=== PATIENT | male | born 1945 | race Caucasian/White ===

== ENCOUNTER → 2018-07-26 | Outpatient (CLI) | payer MEDICARE, OTHER ==
[~2018-07-26] MED LIST: AMLO5 PO; MECL25 PO; PROM25 PO; URSO300 PO
== END | disposition home or self-care (01) ==
LOC: PLD 08:26 → LAB SHORT 08:26
DX: D04.39 Carcinoma in situ of skin of other parts of face (principal); L57.0 Actinic keratosis
CPT/HCPCS: 88305

== ENCOUNTER → 2019-08-14 | Outpatient (CLI) | payer MEDICARE, OTHER | END | disposition home or self-care (01) | LOC: PLD 11:34 → LAB SHORT 11:34 | DX: L57.0 Actinic keratosis (principal) | CPT/HCPCS: 88305 ==

== ENCOUNTER → 2020-07-31 | Outpatient (CLI) | payer MEDICARE, OTHER ==
[~2020-07-31] MED LIST changes: +CIPR500 PO; +Flagyl500 MG PO
[2020-07-31 09:09] LABS: BASOPHILS ABSOLUTE AUTO 0.05 K/mm3 (0.00-0.23); BASOPHILS PERCENT AUTO 1 % (0-2); EOSINOPHILS ABSOLUTE AUTO 0.15 K/mm3 (0.00-0.68); EOSINOPHILS PERCENT AUTO 2 % (0-6); Hematocrit 43.9 % (37.0-53.0); Hemoglobin 14.9 g/dL (13.5-17.5); IMMATURE GRAN ABSOLUTE AUTO 0.04 K/mm3 (0.00-0.10); IMMATURE GRAN PERCENT AUTO 1 % (0-1); LYMPHOCYTES ABSOLUTE AUTO 2.26 K/mm3 (0.84-5.20); LYMPHOCYTES PERCENT AUTO 27 % (21-46); MONOCYTES ABSOLUTE AUTO 0.75 K/mm3 (0.16-1.47); MONOCYTES PERCENT AUTO 9 % (4-13); Mean Corpuscular HGB 30.2 pg (26.0-34.0); Mean Corpuscular HGB Conc 33.9 g/dL (31.5-36.5); Mean Corpuscular Volume 89 fL (80-100); Mean Platelet Volume 10.7 fL (9.1-12.4); NEUTROPHILS ABSOLUTE AUTO 5.02 K/mm3 (1.96-9.15); NEUTROPHILS PERCENT AUTO 61 % (41-73); Platelet Count 188 K/mm3 (150-400); RDW Coefficient Variation 13.2 % (11.7-14.2); Red Blood Cell Count 4.94 M/mm3 (4.30-5.90); White Blood Cell Count 8.27 K/mm3 (4.00-11.30)
[2020-07-31 09:18] LABS: Alanine Aminotransfer (ALT/SGP 26 U/L (12-78); Albumin, Blood 3.5 g/dL (3.4-5.0); Albumin/Globulin Ratio 0.8 (0.8-1.8); Alk Phos 125 U/L (40-126); Anion Gap 8 mmol/L (6-16); Aspartate Aminotrans (AST/SGOT 56 U/L (12-37); Bilirubin, Total 0.7 mg/dL (0.1-1.0); Blood Urea Nitrogen 17 mg/dL (8-24); Bun/Creatinine Ratio 16.5 (12.0-20.0); CO2, Blood 29 mmol/L (21-32); Calcium, Blood 9.3 mg/dL (8.5-10.1); Chloride, Blood 100 mmol/L (98-108); Creatinine, Blood 1.03 mg/dL (0.60-1.20); Globulin, Blood 4.2 g/dL (2.2-4.0); Glomerular Filtration Rate >60 (60-); Glucose, Blood 94 mg/dL (70-99); Potassium, Blood 3.9 mmol/L (3.5-5.5); Sodium, Blood 137 mmol/L (136-145); Total Protein, Blood 7.7 g/dL (6.4-8.2)
== END | disposition home or self-care (01) ==
LOC: LAB SHORT 09:04 → LAB EV 09:04
PROVIDERS: General Practice
DX: Z09 Encounter for follow-up examination after completed treatment for conditions other than malignant neoplasm (principal); Z86.718 Personal history of other venous thrombosis and embolism
CPT/HCPCS: 80053; 85025; 85379

== ENCOUNTER 2022-03-24 08:39 | Emergency (ER) | payer OTHER, MEDICARE ==
[~2022-03-24] VITALS: Ht 162.6 cm; Wt 98.9 kg
[2022-03-24] MEDS ORDERED: LOSARTAN POTAS100 M1 PO (09:52)
[2022-03-24] MEDS ORDERED: ELIQUIS5 M3 PO (09:52)
[2022-03-24] MEDS ORDERED: NEURONTIN300 MG PO (09:53)
[2022-03-24] MEDS ORDERED: Roxicodone5 MG PO (10:52)
== END 2022-03-24 11:00 | disposition home or self-care (01) ==
LOC: ER 08:39
DX: S43.402A Unspecified sprain of left shoulder joint, initial encounter (principal); S80.212A Abrasion, left knee, initial encounter; W01.0XXA Fall on same level from slipping, tripping and stumbling without subsequent striking against object, initial encounter; I10 Essential (primary) hypertension; Z79.899 Other long term (current) drug therapy
CPT/HCPCS: 73030; 99283-25

== ENCOUNTER 2023-02-10 12:35 | Observation (INO) | payer MEDICARE, OTHER ==
[~2023-02-10] VITALS: Ht 165.1 cm; Wt 101.2 kg
[~2023-02-10 12:35] MED LIST changes: -ALLEGRA ALLERG180 MG PO; -FLONASE ALLERG9.9 M2; -SILD25T PO
[2023-02-10] MEDS ORDERED: ALLEGRA ALLERG180 MG PO (15:02)
[2023-02-10] MEDS ORDERED: FLONASE ALLERG9.9 M2 (15:03)
[2023-02-10] MEDS ORDERED: SILD25T PO (15:05)
[2023-02-10] MEDS ORDERED: URSO300 PO (15:06)
[2023-02-10 15:35] VITALS: BP 165/75
--- NOTE | 2023-02-10 17:26 | NUR ---
SHIFT SUMMARY: ASSUMED CARE OF PT UPON HIS ARRIVAL FROM [facility] AT 1249. A&O X 4, PLEASANT. PLACED ON TELEMETRY WHICH SHOWS SINUS JANIA WITH RATE IN 40'S; NOTIFIED BY DIRECTOR BUSINESS INTEGRATION Rojas JUAREZ THAT UNDERLYING RHYTHM LOOKS TO BE SINUS ARRYTHMIA WITH RATE OF 65. ON ROOM AIR, BROUGHT OWN CPAP FROM HOME. 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 EDUCATED PT THAT, D/T DIZZINESS AND BRADYCARDIA, HE NEEDS TO CALL STAFF BEFORE GETTING OOB; TENDS TO OVERESTIMATE HIS ABILITY AND DOES NOT CALL. PLACED SCD'S, WILL HOLD ELITESSIS TONIGHT IN CASE OF PROCEDURE TOMORROW. LOGISTICS OPERATIONS MANAGER DR. GILLETTE HAS SEEN PATIENT.
[2023-02-10 19:24] VITALS: BP 117/57
[2023-02-11 04:02] VITALS: BP 108/60
[2023-02-11 05:08] LABS: BASOPHILS ABSOLUTE AUTO 0.04 K/mm3 (0.00-0.23); BASOPHILS PERCENT AUTO 1 % (0-2); EOSINOPHILS ABSOLUTE AUTO 0.11 K/mm3 (0.00-0.68); EOSINOPHILS PERCENT AUTO 2 % (0-6); Hematocrit 41.9 % (37.0-53.0); Hemoglobin 13.9 g/dL (13.5-17.5); IMMATURE GRAN ABSOLUTE AUTO 0.01 K/mm3 (0.00-0.10); IMMATURE GRAN PERCENT AUTO 0 % (0-1); LYMPHOCYTES ABSOLUTE AUTO 2.13 K/mm3 (0.84-5.20); LYMPHOCYTES PERCENT AUTO 38 % (21-46); MONOCYTES ABSOLUTE AUTO 0.57 K/mm3 (0.16-1.47); MONOCYTES PERCENT AUTO 10 % (4-13); Mean Corpuscular HGB 30.3 pg (26.0-34.0); Mean Corpuscular HGB Conc 33.2 g/dL (31.5-36.5); Mean Corpuscular Volume 91 fL (80-100); Mean Platelet Volume 11.6 fL (9.1-12.4); NEUTROPHILS ABSOLUTE AUTO 2.68 K/mm3 (1.96-9.15); NEUTROPHILS PERCENT AUTO 48 % (41-73); Platelet Count 146 K/mm3 (150-400); RDW Coefficient Variation 13.9 % (11.7-14.2); RDW Standard Deviation 46.5 fL (35.1-46.3); Red Blood Cell Count 4.59 M/mm3 (4.30-5.90); White Blood Cell Count 5.54 K/mm3 (4.00-11.30)
[2023-02-11 05:36] LABS: Albumin/Globulin Ratio 0.8 (0.8-1.8); Bilirubin, Total 0.4 mg/dL (0.1-1.0); Bun/Creatinine Ratio 18.3 (12.0-20.0); Calcium, Blood 8.5 mg/dL (8.5-10.1); Creatinine, Blood 0.93 mg/dL (0.60-1.20); Globulin, Blood 3.6 g/dL (2.2-4.0); Potassium, Blood 4.1 mmol/L (3.5-5.5); Total Protein, Blood 6.6 g/dL (6.4-8.2)
--- NOTE | 2023-02-11 06:02 | NUR ---
SHIFT SUMMARY PT LAYING IN BED DURING BEDSIDE ROUNDS, PT DENIED ANY NEEDS AT THAT TIME-IGNITION SOURCE ASSESSED, PT DENIED SMOKING AND DENIED ANY IGNITION SOURCES PT INFORMED THIS RN THAT HE TOOK HIS OWN GABAPENTIN MEDICATION- EDUCATED PT OF NOT TAKING OWN MEDICATIONS WHILE ADMITTED- PT STATED UNDERSTANDING- RT IN WITH PT AND APPLIED BATTERY TESTER FIELD AND HOME CPAP- APPLIED EGG CRATE TO BED - PT C/O OF BED BEING UNCOMFORTABLE-PT SLEPT T/O NIGHT
[2023-02-11 07:50] VITALS: BP 140/73
== END 2023-02-11 12:59 | disposition home or self-care (01) ==
LOC: MEDS 12:35
PROVIDERS: ADMIT Internal Medicine
DX: R00.1 Bradycardia, unspecified (principal); R55 Syncope and collapse; R42 Dizziness and giddiness; K74.5 Biliary cirrhosis, unspecified; I10 Essential (primary) hypertension; K21.9 Gastro-esophageal reflux disease without esophagitis; E78.5 Hyperlipidemia, unspecified; G62.9 Polyneuropathy, unspecified; G47.33 Obstructive sleep apnea (adult) (pediatric); Z86.718 Personal history of other venous thrombosis and embolism
CPT/HCPCS: 36415; 80053; 85025; 93005; 93010; 93246; 93306; 96372; A9270; G0378; G0379; J1650

== ENCOUNTER → 2023-02-10 | Outpatient (CLI) | payer MEDICARE, OTHER ==
[~2023-02-10] MED LIST changes: +ALLEGRA ALLERG180 MG PO; +ELIQUIS5 M3 PO; +FLONASE ALLERG9.9 M2; +LOSARTAN-HCTZ1 EACH PO; +NEURONTIN300 MG PO; +Roxicodone5 MG PO; +SILD25T PO
[2023-02-10 09:58] LABS: BASOPHILS ABSOLUTE AUTO 0.06 K/mm3 (0.00-0.23); BASOPHILS PERCENT AUTO 1 % (0-2); EOSINOPHILS ABSOLUTE AUTO 0.08 K/mm3 (0.00-0.68); EOSINOPHILS PERCENT AUTO 1 % (0-6); Hematocrit 43.5 % (37.0-53.0); Hemoglobin 14.7 g/dL (13.5-17.5); IMMATURE GRAN ABSOLUTE AUTO 0.02 K/mm3 (0.00-0.10); IMMATURE GRAN PERCENT AUTO 0 % (0-1); LYMPHOCYTES ABSOLUTE AUTO 1.87 K/mm3 (0.84-5.20); LYMPHOCYTES PERCENT AUTO 34 % (21-46); MONOCYTES PERCENT AUTO 9 % (4-13); Mean Corpuscular HGB 30.8 pg (26.0-34.0); Mean Corpuscular HGB Conc 33.8 g/dL (31.5-36.5); Mean Corpuscular Volume 91 fL (80-100); Mean Platelet Volume 11.4 fL (9.1-12.4); NEUTROPHILS PERCENT AUTO 54 % (41-73); Platelet Count 152 K/mm3 (150-400); RDW Coefficient Variation 13.7 % (11.7-14.2); RDW Standard Deviation 46.4 fL (35.1-46.3); Red Blood Cell Count 4.78 M/mm3 (4.30-5.90); White Blood Cell Count 5.53 K/mm3 (4.00-11.30)
[2023-02-10 10:07] LABS: Albumin, Blood 3.4 g/dL (3.4-5.0); Albumin/Globulin Ratio 0.8 (0.8-1.8); Bilirubin, Total 0.8 mg/dL (0.1-1.0); Bun/Creatinine Ratio 13.6 (12.0-20.0); Calcium, Blood 9.6 mg/dL (8.5-10.1); Creatinine, Blood 1.03 mg/dL (0.60-1.20); Globulin, Blood 4.3 g/dL (2.2-4.0); Potassium, Blood 3.9 mmol/L (3.5-5.5); Total Protein, Blood 7.7 g/dL (6.4-8.2)
== END ==
LOC: LAB 09:51 → LAB SHORT 09:51
PROVIDERS: Family Medicine
DX: R11.0 Nausea (principal)
CPT/HCPCS: 80053; 83880; 84484; 85025

== ENCOUNTER → 2023-05-25 | Outpatient (CLI) | payer MEDICARE, OTHER ==
[~2023-05-25] MED LIST changes: +ALLEGRA ALLERG180 MG PO; +FLONASE ALLERG9.9 M2; +SILD25T PO
[2023-05-25 16:07] LABS: BASOPHILS ABSOLUTE AUTO 0.06 K/mm3 (0.00-0.23); BASOPHILS PERCENT AUTO 1 % (0-2); EOSINOPHILS PERCENT AUTO 1 % (0-6); Hematocrit 43.6 % (37.0-53.0); Hemoglobin 14.6 g/dL (13.5-17.5); IMMATURE GRAN ABSOLUTE AUTO 0.03 K/mm3 (0.00-0.10); IMMATURE GRAN PERCENT AUTO 0 % (0-1); LYMPHOCYTES ABSOLUTE AUTO 2.27 K/mm3 (0.84-5.20); LYMPHOCYTES PERCENT AUTO 27 % (21-46); MONOCYTES ABSOLUTE AUTO 0.62 K/mm3 (0.16-1.47); MONOCYTES PERCENT AUTO 7 % (4-13); Mean Corpuscular HGB 31.1 pg (26.0-34.0); Mean Corpuscular HGB Conc 33.5 g/dL (31.5-36.5); Mean Corpuscular Volume 93 fL (80-100); Mean Platelet Volume 11.1 fL (9.1-12.4); NEUTROPHILS ABSOLUTE AUTO 5.43 K/mm3 (1.96-9.15); NEUTROPHILS PERCENT AUTO 64 % (41-73); Platelet Count 194 K/mm3 (150-400); RDW Coefficient Variation 13.3 % (11.7-14.2); RDW Standard Deviation 45.7 fL (35.1-46.3); White Blood Cell Count 8.51 K/mm3 (4.00-11.30)
[2023-05-25 16:18] LABS: Albumin, Blood 3.6 g/dL (3.4-5.0); Albumin/Globulin Ratio 0.8 (0.8-1.8); Bilirubin, Total 0.4 mg/dL (0.1-1.0); Bun/Creatinine Ratio 17.5 (12.0-20.0); Calcium, Blood 9.4 mg/dL (8.5-10.1); Creatinine, Blood 0.97 mg/dL (0.60-1.20); Globulin, Blood 4.3 g/dL (2.2-4.0); Potassium, Blood 3.9 mmol/L (3.5-5.5); Total Protein, Blood 7.9 g/dL (6.4-8.2)
== END | disposition home or self-care (01) ==
LOC: LAB SHORT 15:56 → LAB 15:56
PROVIDERS: Chiropractor
DX: R10.9 Unspecified abdominal pain (principal)
CPT/HCPCS: 80053; 83605; 83690; 85025